=== PATIENT | female | born 1985 | race Caucasian/White ===

== ENCOUNTER 2022-03-07 09:15 | Outpatient (RCR) | payer MEDICAID, SELFPAY ==
[2022-02-21 09:07] VITALS: BP 108/55; PULSE 110; RESP 20; TEMP 36.4; BMI 22.0
--- NOTE | 2022-02-21 13:57 | PCM.WC.HP ---
History of Present Illness Date of Service: 02/21/22 Chief Complaint: Nonhealing sacral wound History of Wound: Rhiannon is a 36-year-old young lady who presents to the wound center due to a 1 month history of nonhealing sacral wound. History of paraplegia following an accident at age 3. Ulcer was said to have started about a month ago and mother and caregiver believe it was as a result of a new wheelchair and gel cushion. They have been managing this at home with an [id number] ointment which was applied 2-3 times a day with only minimal improvement/change. Close proximity to anal opening. Prior history of sacral wound for which she had wound flap/closure and this was done at [place]. Her mother states that she is otherwise stable, no chills, fever or feeling of unwell. Typically has a bowel movement every couple of days. [facility] Medical History (Updated 02/21/22 @ 19:[address] Josias Gomez MD) Paraplegia Sacral decubitus ulcer, stage III Home Medications acetaminophen 325 mg tablet (Tylenol) 650 mg PO Q4H PRN Pain 02/21/22 [History Last Taken Unknown] cranberry DAILY 02/21/22 [History Last Taken Unknown] loperamide 2 mg capsule 2 mg PO Q6H PRN Diarrhea 02/21/22 [History Last Taken Unknown] loratadine 10 mg tablet 10 mg PO DAILY PRN Allergy Symptoms 02/21/22 [History Last Taken Unknown] omeprazole 20 mg capsule,delayed release 20 mg DAILY 02/21/22 [History Last Taken Unknown] sulfamethoxazole 800 mg-trimethoprim 160 mg tablet (Bactrim DS) 1 tab PO BID 02/21/22 [History Last Taken Unknown] Allergy/AdvReac Type Severity Reaction Status Date / Time amoxicillin AdvReac Other Verified 02/21/22 09:27 ciprofloxacin [From Cipro] AdvReac Other Verified 02/21/22 09:27 clavulanic acid AdvReac PT UNSURE Verified 02/21/22 10:06 [From Augmentin] OF REACTION erythromycin base AdvReac Other Verified 02/21/22 10:06 latanoprost AdvReac Other Verified 02/21/22 10:06 pseudoephedrine AdvReac Other Verified 02/21/22 10:06 Social History Smoking Status: Never smoker ROS Constitutional Constitutional: Denies fatigue, fever(s), frequent falls, headache(s), increased appetite, lethargy, malaise or night sweats Eyes Eyes: Denies exophthalmos, eye pain, floaters, foreign body, halo effect, irritation or itchy eyes ENT HEENT: Denies foreign body in nose, headache(s), mouth pain, mucositis, nasal congestion, nasal discharge, nasal obstruction or nasal trauma Cardiovascular Cardiovascular: Denies chest pain, chest pain at rest, chest pain with activity, claudication, clubbing, cold extremities, cyanosis or dyspnea at rest Respiratory/Chest Respiratory/Chest: Denies dry cough, dusky skin, dyspnea, dyspnea on exertion, excessive phlegm production, hemoptysis, hoarseness or nail bed cyanosis Gastrointestinal Gastrointestinal: Denies chewing difficulty, coffee ground emesis, diarrhea, dry heaves or dyspepsia Genitourinary Genitourinary: Denies flank pain, genital bruising, genital lesions or low back pain Musculoskeletal Musculoskeletal: Denies atrophy, extremity pain, muscle cramps, muscle spasms, muscle weakness, myalgias or neck pain Integumentary Integumentary: Reports skin ulcer; Denies erythema, furuncle, hirsutism, jaundice, lesions, nail changes or new lesions Neurologic Neurologic: Denies burning sensations, confusion, convulsions, disequilibrium, dizziness or focal weakness Psychiatric Psychiatric: Denies change in appetite, cognitive impairment, confusion, depression, difficulty concentrating or hallucinations Endocrine Endocrinology: Denies excessive sweating, fatigue, flushing, heat intolerance, increase in ring/shoe/hat size, palpitations, polydipsia or polyphagia Hematologic/Lymphatic Hematologic/Lymphatic: Denies easy bleeding or lymphadenopathy Allergic/Immunologic Allergic/Immunologic: Denies itchy eyes, lip swelling, tongue swelling, hives, urticaria, eczemia, wheezing or asthma Vital Signs Vital Signs Vital Signs: 02/21/22 09:07 Temperature 97.5 F L Temperature Source Temporal Pulse Rate 110 H Respiratory Rate 20 H Blood Pressure 108/55 L Blood Pressure Mean 72 Blood Pressure Source Monitor Weight Weight: 140 lb 10.354 oz Body Mass Index (BMI) 22.0 Physical Exam Const alert, oriented x3 and no apparent distress General Appearance: cooperative, comfortable and well kempt HEENT normocephalic, head/scalp atraumatic and hearing grossly normal bilaterally Eyes PERRL General Eye: normal appearance of both eyes Neck full ROM General: normal visual inspection Resp normal respiratory effort and normal air movement Skin Wounds: wounds noted Neuro oriented x3 and CN's II-XII intact bilaterally Psych mental status grossly normal, thought process normal, cooperative, affect normal and speech normal Debridement Note Debridement Note Wound debrided: Sacral Type of Debridement: Excisional debridement Anesthesia Used: 4% Lidocaine Solution Depth: Down to and including healthy tissue and in the subcutaneous layer Percentage of wound debrided: 100 Instrument Used: 5mm curette Tissue Removed: Slough and devitalized tissue Severity: Fat Layer Exposed Amount of bleeding with debridement: Mild Bleeding Controlled with: Pressure Patient tolerated procedure: Patient tolerated procedure well Post-Debridement Measurements and Additional Note: Post-Debridement Measurements/Treatment - Nurse 1 - General Ulcer Assessment Start: 02/21/22 09:03 Freq: Status: Active Protocol: DELMER Activity Type Activity Date Activity User E-sign Co-sign Detail Recorded Client Recorded Date Recorded By Document 02/21/22 09:07 [id number] 02/21/22 09:22 02/21/22 09:07 - Today's Visit Information Type of service Initial Visit Arrival Mode Wheelchair Transfer Assist (Other) x2 Patient Identification Verified (Name & Yes ) Patient Requires Transmission-Based No Precautions Height and Weight Height 5 ft 7 in Weight 140 lb 10.354 oz Weight in Pounds 140.6 lbs Body Mass Index (BMI) 22.0 BMI Classification Normal BSA - Jose 1.74 Vital Signs Temperature (97.8 F-99.1 F) 97.5 F L Temperature Source Temporal Pulse Rate (60-100) 110 H Pulse Location Monitor Respiratory Rate (12-18) 20 H Respiratory rate source Observation Blood Pressure (90/60-120/80) 108/55 L Blood Pressure Mean 72 Source Monitor Pain Scale: 0-10 Numeric Is Patient Pain Free? Yes Communication Assessment Preferred language Welsh Able to Read Yes Able to Write Yes Right Hearing Abillity Normal Left Hearing Abillity Normal Visual Assistive Devices Glasses Teaching Assessment Preferences Verbal,Written, Demonstration Barriers to Learning None Readiness To Learn Good Willingness to Engage in Self Management Med Activies Readiness to Engage in Self Management Med Activities Anxiety Level Calm Cooperation Cooperative Perception Coherent Interest in Health Problem Asks Questions Education Importance Acknowledges Need Does Patient Smoke tobacco or other No substances Smoking Status Never smoker Is Patient Diabetic No Functional Assessment Recent Decline in Ability to Perform Denies Any Declines List Device(s) with Patient Culture/Faith/Door To Door Fundraising Collector Cultural/Faith Needs that may affect No Treatment Plan Would you allow our hospital door paneler to No meet you for the purpose of spiritual/ emotional support? Door To Door Fundraising Collector to contact place of gnosticist No Teaching: Wound Center Diagnostic Tests Ordered -Person Taught Patient Discharge Instructions -Person Taught Patient Dressing Your Wound -Person Taught Patient *Welcome to the Wound Center -Person Taught Patient WC - Nurse 1 - General Ulcer Measurement Start: 02/21/22 09:03 Freq: Status: Active Protocol: Activity Type Activity Date Activity User E-sign Co-sign Detail Recorded Client Recorded Date Recorded By Document 02/21/22 09:07 DL [id number] 02/21/22 09:22 DL 02/21/22 09:07 Wound Center Nurse 1 #1 sacral -Current Size (cm) - Length 3.3 -Current Size (cm) - Width 3.1 -Current Size (cm) - Depth 0.2 -Total Square Cm 10.23 -Photo Taken Yes -Exudate Amt Medium -Exudate Type Serosanguineous -Wound Margin Distinct, Outline Attached -Granulation Amt Large (67-100%) -Granulation Quality Red -Necrosis Amt None Present (0 %) -Structure Exposed N/A -Texture (Angy-wound Skin Appearance) Scarring -Moisture (Angy-wound Skin Appearance) Maceration -Color (Agny-wound Skin Appearance) No Abnormality -Temperature (Angy-wound Skin No Abnormality Appearance) (Pt Warm) -Tenderness on Palpation (Angy-wound No Skin Appearance) -Ulcer Cleansing Soap and Water -Foul Odor after Cleansing No -Anesthetic Used 4% Lidocaine Solution WC - Nurse 2 - General Ulcer CM Notes Start: 02/21/22 09:03 Freq: Status: Active Protocol: Activity Type Activity Date Activity User E-sign Co-sign Detail Recorded Client Recorded Date Recorded By Document 02/21/22 09:45 MW [id number] 02/21/22 09:53 MW 02/21/22 09:45 Wound Center Nurse 2 -Time 09:45 -Correct Patient Yes -Correct Side, Site, Position Yes -Correct Procedure Yes -Procedure Performed Yes -Type of Procedure Debridement -Clinical Debridement Subcutaneous -Tissue Removed Subcutaneous -Post Debridement (cm) - Length 1.4 -Post Debridement (cm) - Width 3.5 -Post Debridement (cm) - Depth 0.1 -Total Square (Post) (cm) 4.90 -Area of Debridement (cm) - Length 1.4 -Area of Debridement (cm) - Width 3.5 -Total Square (Area) (cm) 4.90 -Tunneling No -Undermining/Tunneling No -Circular Undermining No -Wound/Ulcer Outcome Not Healed -Ulcer Cleansing Rinsed/ Irrigated with Saline -Foul Odor after Cleansing No -Bioengineered Tissue No -Bleeding Controlled with Pressure -Treatment Response Procedure Tolerated Well -Offloading No -Debridement - Subq, 1st 20sq cm Yes Pain Scale: 0-10 Numeric Is Patient Pain Free? Yes - Nurse 3 - General Ulcer D/C NN Start: 02/21/22 09:03 Freq: Status: Active Protocol: Activity Type Activity Date Activity User E-sign Co-sign Detail Recorded Client Recorded Date Recorded By Document 02/21/22 10:08 CT [id number] 02/21/22 10:09 CT 02/21/22 10:08 Wound Care Nurse 3 #1 sacral -Ulcer Cleansing Rinsed/ Irrigated with Saline -Primary Dressing Applied Aquacel AG 4x4, Mepilex Border -Aquacel AG 4x4 1 -Mepilex Border 3 Pain Scale: 0-10 Numeric Is Patient Pain Free? Yes WC - Visit Discharge Discharge Condition Stable Ambulatory Status Wheelchair Transportation Private Auto Medication Reconcilliation completed & No provided to patient/care provider Clinical Summary of Care Provided Yes Charges/Coding Visit Charges Office Visits / Consults: 07760 OV L3 New Procedures Integumentary 111xxx-113xx: 00105 Cassandra subq tissue 20 sq cm/< Assessment/Plan Assessment/Plan (1) Sacral decubitus ulcer, stage III: CODE(S): L89.153 - Pressure ulcer of sacral region, stage 3 (2) Paraplegia: CODE(S): G82.20 - Paraplegia, unspecified PLAN: Plan Presents to the wound center due to nonhealing sacral ulcer. Has been present for about a month. Caregiver and mother have been applying an ointment 2-3 times daily. Dressing changes have been difficult due to location. Debridement done as documented above, procedure was well-tolerated. Due to proximity to anal opening, Aquacel Ag recommended. Change twice daily or more if needed depending on soilage. Family advised that if this does not improve/if there is increased risk of contamination, a divergent colostomy or flap closure may be needed again. Increase protein intake. Offloading. Vitamin C, D and zinc also recommended. The questions were answered and they were advised to call with any further questions or concerns. Follow-up in a week or sooner if needed. This note was generated with [employer] dictation software. It may contain incorrect words, spelling, and punctuation that were not noted in checking the note before signing.
[2022-02-28 09:30] VITALS: BP 115/70; PULSE 116; RESP 18; TEMP 36.5; BMI 22.0
--- NOTE | 2022-02-28 12:57 | PCM.WC.PN ---
History of Present Illness Date of Service: 02/28/22 Chief Complaint: Nonhealing sacral wound History of Wound: Rhiannon is a 36-year-old young lady who presents to the wound center due to a 1 month history of nonhealing sacral wound. History of paraplegia following an accident at age 3. Ulcer was said to have started about a month ago and mother and caregiver believe it was as a result of a new wheelchair and gel cushion. They have been managing this at home with an [id number]-[id number] ointment which was applied 2-3 times a day with only minimal improvement/change. Close proximity to anal opening. Prior history of sacral wound for which she had wound flap/closure and this was done at [place]. Her mother states that she is otherwise stable, no chills, fever or feeling of unwell. Typically has a bowel movement every couple of days. Progress of Wound: Improving. No new concerns at this time. Objective Data Objective Data Vital Signs: Vital Signs Temp Pulse Resp BP O2 Del Method 97.7 F L 116 H 18 115/70 Room Air 02/28/22 09:30 02/28/22 09:30 02/28/22 09:30 02/28/22 09:30 02/28/22 09:30 Oxygen Delivery Method Room Air Weight: 140 lb 10.354 oz Body Mass Index (BMI) 22.0 Charges/Coding Procedures Integumentary 111xxx-113xx: 58821 Cassandra subq tissue 20 sq cm/< Physical Exam Const alert, oriented x3 and no apparent distress General Appearance: cooperative, comfortable and well kempt HEENT normocephalic, head/scalp atraumatic and hearing grossly normal bilaterally Eyes PERRL General Eye: normal appearance of both eyes Neck full ROM General: normal visual inspection Resp normal respiratory effort and normal air movement Skin Wounds: wounds noted Neuro oriented x3 and CN's II-XII intact bilaterally Psych mental status grossly normal, thought process normal, cooperative, affect normal and speech normal Debridement Note Debridement Note Wound debrided: Sacral Type of Debridement: Excisional debridement Anesthesia Used: 4% Lidocaine Solution Depth: Down to and including healthy tissue and in the subcutaneous layer Percentage of wound debrided: 100 Instrument Used: 5mm curette Tissue Removed: Slough and devitalized tissue Severity: Fat Layer Exposed Amount of bleeding with debridement: Mild Bleeding Controlled with: Pressure Patient tolerated procedure: Patient tolerated procedure well Post-Debridement Measurements and Additional Note: Post-Debridement Measurements/Treatment WC - Nurse 1 - General Ulcer Assessment Start: 02/21/22 09:03 Freq: Status: Active Protocol: DELMER Activity Type Activity Date Activity User E-sign Co-sign Detail Recorded Client Recorded Date Recorded By Document 02/21/22 09:07 DL [id number] 02/21/22 09:22 DL Document 02/28/22 09:30 OR [id number] 02/28/22 09:39 OR 02/21/22 02/28/22 09:07 09:30 - Today's Visit Information Type of service Initial Visit Follow-up Visit (Physician/LAND ACQUISITION MANAGER ) Arrival Mode Wheelchair Wheelchair Transfer Assist (Other) x2 Accompanied by aid Patient Identification Verified (Name & Yes Yes ) Patient Requires Transmission-Based No Precautions Safety Precautions Fall Prevention Height and Weight Height 5 ft 7 in Weight 140 lb 10.354 oz Weight in Pounds 140.6 lbs Body Mass Index (BMI) 22.0 22.0 BMI Classification Normal Normal BSA - Jose 1.74 Vital Signs Temperature (97.8 F-99.1 F) 97.5 F L 97.7 F L Temperature Source Temporal Temporal Pulse Rate (60-100) 110 H 116 H Pulse Location Monitor Monitor Respiratory Rate (12-18) 20 H 18 Respiratory rate source Observation Observation Oxygen Delivery Method Room Air Blood Pressure (90/60-120/80) 108/55 L 115/70 Blood Pressure Mean (mm Hg) 72 85 Source Monitor Monitor Position Sitting Blood Pressure Location Right Arm History Since Last Visit- (Skip if this is Patient's initial visit) Left Footwear Regular Shoe Right Footwear Regular Shoe Pain Scale: 0-10 Numeric Is Patient Pain Free? Yes Yes Communication Assessment Preferred language Mosotho Able to Read Yes Able to Write Yes Right Hearing Abillity Normal Left Hearing Abillity Normal Visual Assistive Devices Glasses Teaching Assessment Preferences Verbal,Written, Demonstration Barriers to Learning None Readiness To Learn Good Willingness to Engage in Self Management Med Activies Readiness to Engage in Self Management Med Activities Anxiety Level Calm Cooperation Cooperative Perception Coherent Interest in Health Problem Asks Questions Education Importance Acknowledges Need Does Patient Smoke tobacco or other No substances Smoking Status Never smoker Is Patient Diabetic No Functional Assessment Recent Decline in Ability to Perform Denies Any Declines List Device(s) with Patient Culture/Yarsanism/Clerical Support Cultural/Yarsanism Needs that may affect No Treatment Plan Would you allow our hospital automobile accessories installer to No meet you for the purpose of spiritual/ emotional support? Clerical Support to contact place of congregation No Teaching: Wound Center Diagnostic Tests Ordered -Person Taught Patient Discharge Instructions -Person Taught Patient Dressing Your Wound -Person Taught Patient *Welcome to the Wound Center -Person Taught Patient WC - Nurse 1 - General Ulcer Measurement Start: 02/21/22 09:03 Freq: Status: Active Protocol: Activity Type Activity Date Activity User E-sign Co-sign Detail Recorded Client Recorded Date Recorded By Document 02/21/22 09:07 DL [id number] 02/21/22 09:22 DL Document 02/28/22 09:30 OR [id number] 02/28/22 09:39 MT 02/21/22 02/28/22 09:07 09:30 Wound Center Nurse 1 #1 sacral -Current Size (cm) - Length 3.3 1.1 -Current Size (cm) - Width 3.1 3.0 -Current Size (cm) - Depth 0.2 0.1 -Total Square Cm 10.23 3.30 -Photo Taken Yes -Exudate Amt Medium Small -Exudate Type Serosanguineous Serosanguineous -Wound Margin Distinct, Flat & Intact Outline Attached -Granulation Amt Large (67-100%) Large (67-100%) -Granulation Quality Red Pale,[place],Red -Necrosis Amt None Present (0 None Present (0 %) %) -Structure Exposed N/A -Texture (Angy-wound Skin Appearance) Scarring Assessed -Moisture (Angy-wound Skin Appearance) Maceration Assessed -Color (Angy-wound Skin Appearance) No Abnormality Assessed -Temperature (Angy-wound Skin No Abnormality No Abnormality Appearance) (Pt Warm) (Pt Warm) -Tenderness on Palpation (Angy-wound No No Skin Appearance) -Ulcer Cleansing Soap and Water Rinsed/ Irrigated with Saline -Foul Odor after Cleansing No No -Anesthetic Used 4% Lidocaine 4% Lidocaine Solution Solution Lower Limb Edema Present NA WC - Nurse 2 - General Ulcer CM Notes Start: 02/21/22 09:03 Freq: Status: Active Protocol: Activity Type Activity Date Activity User E-sign Co-sign Detail Recorded Client Recorded Date Recorded By Document 02/21/22 09:45 MW [id number] 02/21/22 09:53 MW Document 02/28/22 09:47 MW [id number] 02/28/22 09:49 MW 02/21/22 02/28/22 09:45 09:47 Wound Center Nurse 2 #1 sacral -Time 09:45 09:47 -Correct Patient Yes Yes -Correct Side, Site, Position Yes Yes -Correct Procedure Yes Yes -Procedure Performed Yes Yes -Type of Procedure Debridement Debridement -Clinical Debridement Subcutaneous Subcutaneous -Tissue Removed Subcutaneous Subcutaneous -Post Debridement (cm) - Length 1.4 1.2 -Post Debridement (cm) - Width 3.5 3.0 -Post Debridement (cm) - Depth 0.1 0.1 -Total Square (Post) (cm) 4.90 3.60 -Area of Debridement (cm) - Length 1.4 1.2 -Area of Debridement (cm) - Width 3.5 3.0 -Total Square (Area) (cm) 4.90 3.60 -Tunneling No No -Undermining/Tunneling No No -Circular Undermining No No -Wound/Ulcer Outcome Not Healed Not Healed -Ulcer Cleansing Rinsed/ Rinsed/ Irrigated with Irrigated with Saline Saline -Foul Odor after Cleansing No No -Bioengineered Tissue No No -Bleeding Controlled with Pressure Pressure -Treatment Response Procedure Procedure Tolerated Well Tolerated Well -Offloading No No -Debridement - Subq, 1st 20sq cm Yes Yes Pain Scale: 0-10 Numeric Is Patient Pain Free? Yes Yes - Nurse 3 - General Ulcer D/C NN Start: 02/21/22 09:03 Freq: Status: Active Protocol: Activity Type Activity Date Activity User E-sign Co-sign Detail Recorded Client Recorded Date Recorded By Document 02/21/22 10:08 OR [id number] 02/21/22 10:09 OR Document 02/28/22 10:01 [facility] [id number] 02/28/22 10:01 [facility] 02/21/22 02/28/22 10:08 10:01 Wound Care Nurse 3 #1 sacral -Ulcer Cleansing Rinsed/ Rinsed/ Irrigated with Irrigated with Saline Saline -Foul Odor after Cleansing No -Primary Dressing Applied Aquacel AG 4x4, Aquacel AG 4x4, Mepilex Border Mepilex Border -Aquacel AG 4x4 1 1 -Mepilex Border 3 1 Treatment Response Procedure Tolerated Well Pain Scale: 0-10 Numeric Is Patient Pain Free? Yes Yes WC - Visit Discharge Discharge Condition Stable Stable Ambulatory Status Wheelchair Wheelchair Transportation Private Auto Private Auto Accompanied by caregiver Medication Reconcilliation completed & No provided to patient/care provider Clinical Summary of Care Provided Yes Assessment/Plan Assessment/Plan (1) Sacral decubitus ulcer, stage III: CODE(S): L89.153 - Pressure ulcer of sacral region, stage 3 (2) Paraplegia: CODE(S): G82.20 - Paraplegia, unspecified PLAN: Plan Debridement done as documented above, procedure was well-tolerated. Improving. Continue Aquacel Ag recommended. Change twice daily or more if needed depending on soilage. Continue Increased protein intake and Offloading. Vitamin C, D and zinc also recommended. Their questions were answered and they were advised to call with any further questions or concerns. Follow-up in a week or sooner if needed. This note was generated with [employer] dictation software. It may contain incorrect words, spelling, and punctuation that were not noted in checking the note before signing.
[2022-03-07 09:07] VITALS: BP 97/65; PULSE 116; RESP 16; TEMP 35.8; BMI 22.0
--- NOTE | 2022-03-07 13:32 | PCM.WC.PN ---
History of Present Illness Date of Service: 03/07/22 Chief Complaint: Nonhealing sacral wound History of Wound: Rhiannon is a 36-year-old young lady who presents to the wound center due to a 1 month history of nonhealing sacral wound. History of paraplegia following an accident at age 3. Ulcer was said to have started about a month ago and mother and caregiver believe it was as a result of a new wheelchair and gel cushion. They have been managing this at home with an [id number] ointment which was applied 2-3 times a day with only minimal improvement/change. Close proximity to anal opening. Prior history of sacral wound for which she had wound flap/closure and this was done at [place]. Her mother states that she is otherwise stable, no chills, fever or feeling of unwell. Typically has a bowel movement every couple of days. Progress of Wound: Improving. No new concerns at this time. Objective Data Objective Data Vital Signs: Vital Signs Temp Pulse Resp BP O2 Del Method 96.4 F L 116 H 16 97/65 Room Air 03/07/22 09:07 03/07/22 09:07 03/07/22 09:07 03/07/22 09:07 03/07/22 09:07 Oxygen Delivery Method Room Air Weight: 140 lb 10.354 oz Body Mass Index (BMI) 22.0 Charges/Coding Procedures Integumentary 111xxx-113xx: 60406 Cassandra subq tissue 20 sq cm/< Physical Exam Const alert, oriented x3 and no apparent distress General Appearance: cooperative, comfortable and well kempt HEENT normocephalic, head/scalp atraumatic and hearing grossly normal bilaterally Eyes PERRL General Eye: normal appearance of both eyes Neck full ROM General: normal visual inspection Resp normal respiratory effort and normal air movement Skin Wounds: wounds noted Neuro oriented x3 and CN's II-XII intact bilaterally Psych mental status grossly normal, thought process normal, cooperative, affect normal and speech normal Debridement Note Debridement Note Wound debrided: Sacral Type of Debridement: Excisional debridement Anesthesia Used: 4% Lidocaine Solution Depth: Down to and including healthy tissue and in the subcutaneous layer Percentage of wound debrided: 100 Instrument Used: 3mm curette Tissue Removed: Slough and devitalized tissue Severity: Fat Layer Exposed Amount of bleeding with debridement: Mild Bleeding Controlled with: Pressure Patient tolerated procedure: Patient tolerated procedure well Post-Debridement Measurements and Additional Note: Post-Debridement Measurements/Treatment WC - Nurse 1 - General Ulcer Assessment Start: 02/21/22 09:03 Freq: Status: Active Protocol: DELMER Activity Type Activity Date Activity User E-sign Co-sign Detail Recorded Client Recorded Date Recorded By Document 02/21/22 09:07 DL [id number] 02/21/22 09:22 DL Document 02/28/22 09:30 MT [id number] 02/28/22 09:39 MT Document 03/07/22 09:07 BMF [id number] 03/07/22 09:16 BMF 02/21/22 02/28/22 03/07/22 09:07 09:30 09:07 - Today's Visit Information Type of service Initial Visit Follow-up Visit Follow-up Visit (Physician/[employer] [facility] (Physician/[employer] MILLER ) ) Arrival Mode Wheelchair Wheelchair Wheelchair Transfer Assist (Other) x2 Accompanied by aid caregiver Patient Identification Verified (Name & Yes Yes Yes ) Patient Requires Transmission-Based No No Precautions Safety Precautions Fall Prevention Height and Weight Height 5 ft 7 in Weight 140 lb 10.354 oz Weight in Pounds 140.6 lbs Body Mass Index (BMI) 22.0 22.0 22.0 BMI Classification Normal Normal Normal BSA - Jose 1.74 Vital Signs Temperature (97.8 F-99.1 F) 97.5 F L 97.7 F L 96.4 F L Temperature Source Temporal Temporal Temporal Pulse Rate (60-100) 110 H 116 H 116 H Pulse Location Monitor Monitor Monitor Respiratory Rate (12-18) 20 H 18 16 Respiratory rate source Observation Observation Observation Oxygen Delivery Method Room Air Room Air Blood Pressure (90/60-120/80) 108/55 L 115/70 97/65 Blood Pressure Mean (mm Hg) 72 85 75 Source Monitor Monitor Monitor Position Sitting Sitting Blood Pressure Location Right Arm Left Arm History Since Last Visit- (Skip if this is Patient's initial visit) Have you changed medications since your No last visit? Any new allergies or adverse reactions No Had a fall/change in ADL's that may No increase risk of falls Signs or symptoms of abuse and/or No neglect since last visit Have you been in the hospital since your No last visit? Has dressing in place as prescribed Yes Has compression in place as prescribed N/A Has offloadiing in place as prescribed N/A Experienced any changes in pain level or No management Left Footwear Regular Shoe Slipper Right Footwear Regular Shoe Slipper Pain Scale: 0-10 Numeric Is Patient Pain Free? Yes Yes Yes Communication Assessment Preferred language Guinean Able to Read Yes Able to Write Yes Right Hearing Abillity Normal Left Hearing Abillity Normal Visual Assistive Devices Glasses Teaching Assessment Preferences Verbal,Written, Demonstration Barriers to Learning None Readiness To Learn Good Willingness to Engage in Self Management Med Activies Readiness to Engage in Self Management Med Activities Anxiety Level Calm Cooperation Cooperative Perception Coherent Interest in Health Problem Asks Questions Education Importance Acknowledges Need Does Patient Smoke tobacco or other No substances Smoking Status Never smoker Is Patient Diabetic No Functional Assessment Recent Decline in Ability to Perform Denies Any Declines List Device(s) with Patient Culture/Scientology/Range Examiner Cultural/Scientology Needs that may affect No Treatment Plan Would you allow our hospital graphics programmer to No meet you for the purpose of spiritual/ emotional support? Range Examiner to contact place of uatsdin No Teaching: Wound Center Diagnostic Tests Ordered -Person Taught Patient Discharge Instructions -Person Taught Patient Dressing Your Wound -Person Taught Patient *Welcome to the Wound Center -Person Taught Patient WC - Nurse 1 - General Ulcer Measurement Start: 02/21/22 09:03 Freq: Status: Active Protocol: Activity Type Activity Date Activity User E-sign Co-sign Detail Recorded Client Recorded Date Recorded By Document 02/21/22 09:07 [id number] 02/21/22 09:22 DL Document 02/28/22 09:30 SD [id number] 02/28/22 09:39 SD Document 03/07/22 09:07 [facility] [id number] 03/07/22 09:16 [facility] 02/21/22 02/28/22 03/07/22 09:07 09:30 09:07 Wound Center Nurse 1 #1 sacral -Combined with other wound No -Current Size (cm) - Length 3.3 1.1 1.4 -Current Size (cm) - Width 3.1 3.0 2 -Current Size (cm) - Depth 0.2 0.1 0.1 -Total Square Cm 03.03 3.30 2.8 -Date of Last Picture (Recall this 03/07/22 field) -Photo Taken Yes Yes -Epithelialization None Present -Tunneling No -Undermining/Tunneling No -Circular Undermining No -Exudate Amt Medium Small Small -Exudate Type Serosanguineous Serosanguineous Serosanguineous -Wound Margin Distinct, Flat & Intact Distinct, Outline Outline Attached Attached -Granulation Amt Large (67-100%) Large (67-100%) Large (67-100%) -Granulation Quality Red Pale,[place],Red Red -Slough/Fibrin No -Necrosis Amt None Present (0 None Present (0 None Present (0 %) %) %) -Structure Exposed N/A -Texture (Angy-wound Skin Appearance) Scarring Assessed Assessed -Moisture (Angy-wound Skin Appearance) Maceration Assessed Assessed -Color (Angy-wound Skin Appearance) No Abnormality Assessed Assessed -Temperature (Angy-wound Skin No Abnormality No Abnormality No Abnormality Appearance) (Pt Warm) (Pt Warm) (Pt Warm) -Tenderness on Palpation (Angy-wound No No No Skin Appearance) -Ulcer Cleansing Soap and Water Rinsed/ Rinsed/ Irrigated with Irrigated with Saline Saline -Foul Odor after Cleansing No No No -Anesthetic Used 4% Lidocaine 4% Lidocaine 4% Lidocaine Solution Solution Solution Lower Limb Edema Present NA WC - Nurse 2 - General Ulcer CM Notes Start: 02/21/22 09:03 Freq: Status: Active Protocol: Activity Type Activity Date Activity User E-sign Co-sign Detail Recorded Client Recorded Date Recorded By Document 02/21/22 09:45 MW [id number] 02/21/22 09:53 MW Document 02/28/22 09:47 MW [id number] 02/28/22 09:49 MW Document 03/07/22 09:36 MW [id number] 03/07/22 09:40 MW 02/21/22 02/28/22 03/07/22 09:45 09:47 09:36 Wound Center Nurse 2 #1 sacral -Time 09:45 09:47 09:36 -Correct Patient Yes Yes Yes -Correct Side, Site, Position Yes Yes Yes -Correct Procedure Yes Yes Yes -Procedure Performed Yes Yes Yes -Type of Procedure Debridement Debridement Debridement -Clinical Debridement Subcutaneous Subcutaneous Subcutaneous -Tissue Removed Subcutaneous Subcutaneous Subcutaneous -Post Debridement (cm) - Length 1.4 1.2 0.9 -Post Debridement (cm) - Width 3.5 3.0 2.3 -Post Debridement (cm) - Depth 0.1 0.1 0.1 -Total Square (Post) (cm) 4.90 3.60 2.07 -Area of Debridement (cm) - Length 1.4 1.2 0.9 -Area of Debridement (cm) - Width 3.5 3.0 2.3 -Total Square (Area) (cm) 4.90 3.60 2.07 -Tunneling No No No -Undermining/Tunneling No No No -Circular Undermining No No No -Wound/Ulcer Outcome Not Healed Not Healed Not Healed -Ulcer Cleansing Rinsed/ Rinsed/ Rinsed/ Irrigated with Irrigated with Irrigated with Saline Saline Saline -Foul Odor after Cleansing No No No -Bioengineered Tissue No No No -Bleeding Controlled with Pressure Pressure Pressure -Treatment Response Procedure Procedure Procedure Tolerated Well Tolerated Well Tolerated Well -Offloading No No No -Debridement - Subq, 1st 20sq cm Yes Yes Yes Pain Scale: 0-10 Numeric Is Patient Pain Free? Yes Yes Yes WC - Nurse 3 - General Ulcer D/C NN Start: 02/21/22 09:03 Freq: Status: Active Protocol: Activity Type Activity Date Activity User E-sign Co-sign Detail Recorded Client Recorded Date Recorded By Document 02/21/22 10:08 SD [id number] 02/21/22 10:09 SD Document 02/28/22 10:01 [facility] [id number] 02/28/22 10:01 [facility] Document 03/07/22 09:56 ML [id number] 03/07/22 09:56 ML 02/21/22 02/28/22 03/07/22 10:08 10:01 09:56 Wound Care Nurse 3 #1 sacral -Ulcer Cleansing Rinsed/ Rinsed/ Rinsed/ Irrigated with Irrigated with Irrigated with Saline Saline Saline -Foul Odor after Cleansing No No -Primary Dressing Applied Aquacel AG 4x4, Aquacel AG 4x4, Aquacel AG 4x4, Mepilex Border Mepilex Border Mepilex Border -Aquacel AG 4x4 1 1 1 -Mepilex Border 3 1 1 Treatment Response Procedure Tolerated Well Pain Scale: 0-10 Numeric Is Patient Pain Free? Yes Yes Yes WC - Visit Discharge Discharge Condition Stable Stable Ambulatory Status Wheelchair Wheelchair Transportation Private Auto Private Auto Accompanied by caregiver Medication Reconcilliation completed & No provided to patient/care provider Clinical Summary of Care Provided Yes Assessment/Plan Assessment/Plan (1) Sacral decubitus ulcer, stage III: CODE(S): L89.153 - Pressure ulcer of sacral region, stage 3 (2) Paraplegia: CODE(S): G82.20 - Paraplegia, unspecified PLAN: Plan Debridement done as documented above, procedure was well-tolerated. Improving. Continue Aquacel Ag recommended. Change twice daily or more if needed depending on soilage. Continue Increased protein intake and Offloading. Vitamin C, D and zinc also recommended. Their questions were answered and they were advised to call with any further questions or concerns. Follow-up in a week or sooner if needed. This note was generated with [employer] Access dictation software. It may contain incorrect words, spelling, and punctuation that were not noted in checking the note before signing.
== END 2022-03-11 23:59 | disposition home or self-care (01) ==
LOC: WC 09:15
PROVIDERS: PCP Internal Medicine; Visit Provider Internal Medicine
DX: L89.153 Pressure ulcer of sacral region, stage 3 (principal); G82.20 Paraplegia, unspecified
CPT/HCPCS: 11042; 99203; G0463

== ENCOUNTER 2022-03-28 09:45 | Outpatient (RCR) | payer MEDICAID, SELFPAY ==
[2022-03-12 00:42] VITALS: BP 97/65; PULSE 116; RESP 16; TEMP 35.8; BMI 22.0
[2022-03-14 08:33] VITALS: BP 99/66; PULSE 100; RESP 20; TEMP 36.6; BMI 22.0
--- NOTE | 2022-03-14 12:19 | PN.PCM_ITS ---
History of Present Illness Date of Service: 03/14/22 Chief Complaint: Nonhealing sacral wound History of Wound: Rhiannon is a 36-year-old young lady who presents to the wound center due to a 1 month history of nonhealing sacral wound. History of paraplegia following an accident at age 3. Ulcer was said to have started about a month ago and mother and caregiver believe it was as a result of a new wheelchair and gel cushion. They have been managing this at home with an kdfj-ypb-[id number] ointment which was applied 2-3 times a day with only minimal improvement/change. Close proximity to anal opening. Prior history of sacral wound for which she had wound flap/closure and this was done at [place]. Her mother states that she is otherwise stable, no chills, fever or feeling of unwell. Typically has a bowel movement every couple of days. Progress of Wound: Increased bowel movement over the last week and difficulty with keeping dressing in place. Some worsening noted. Objective Data Objective Data Vital Signs: Vital Signs Temp Pulse Resp BP 97.9 F 100 20 H 99/66 03/14/22 08:33 03/14/22 08:33 03/14/22 08:33 03/14/22 08:33 Weight: 140 lb 10.354 oz Body Mass Index (BMI) 22.0 Charges/Coding Procedures Integumentary 111xxx-113xx: 29824 Cassandra subq tissue 20 sq cm/< Physical Exam Const alert, oriented x3 and no apparent distress General Appearance: cooperative, comfortable and well kempt HEENT normocephalic, head/scalp atraumatic and hearing grossly normal bilaterally Eyes PERRL General Eye: normal appearance of both eyes Neck full ROM General: normal visual inspection Resp normal respiratory effort and normal air movement Skin Wounds: wounds noted Neuro oriented x3 and CN's II-XII intact bilaterally Psych mental status grossly normal, thought process normal, cooperative, affect normal and speech normal Debridement Note Debridement Note Wound debrided: Sacral Type of Debridement: Excisional debridement Anesthesia Used: 4% Lidocaine Solution Depth: Down to and including healthy tissue and in the subcutaneous layer Percentage of wound debrided: 100 Instrument Used: 3mm curette Tissue Removed: Slough and devitalized tissue Severity: Fat Layer Exposed Amount of bleeding with debridement: Mild Bleeding Controlled with: Pressure Patient tolerated procedure: Patient tolerated procedure well Post-Debridement Measurements and Additional Note: Post-Debridement Measurements/Treatment JUAN - Nurse 1 - General Ulcer Assessment Start: 03/14/22 08:33 Freq: Status: Active Protocol: DELMER Activity Type Activity Date Activity User E-sign Co-sign Detail Recorded Client Recorded Date Recorded By Document 03/14/22 08:33 DL [id number] 03/14/22 08:40 DL 03/14/22 08:33 WC - Today's Visit Information Type of service Follow-up Visit (Physician/E BUSINESS CONSULTANT ) Arrival Mode Wheelchair Transfer Assist (Other) x2 Patient Identification Verified (Name & Yes ) Patient Requires Transmission-Based No Precautions Height and Weight Body Mass Index (BMI) 22.0 BMI Classification Normal Vital Signs Temperature (97.8 F-99.1 F) 97.9 F Temperature Source Temporal Pulse Rate (60-100) 100 Pulse Location Monitor Respiratory Rate (12-18) 20 H Respiratory rate source Observation Blood Pressure (90/60-120/80) 99/66 Blood Pressure Mean (mm Hg) 77 Source Monitor History Since Last Visit- (Skip if this is Patient's initial visit) Have you changed medications since your No last visit? Any new allergies or adverse reactions No Had a fall/change in ADL's that may No increase risk of falls Signs or symptoms of abuse and/or No neglect since last visit Have you been in the hospital since your No last visit? Has dressing in place as prescribed Yes Has compression in place as prescribed N/A Has offloadiing in place as prescribed Yes Experienced any changes in pain level or No management Pain Scale: 0-10 Numeric Is Patient Pain Free? Yes JUAN - Nurse 1 - General Ulcer Measurement Start: 03/14/22 08:33 Freq: Status: Active Protocol: Activity Type Activity Date Activity User E-sign Co-sign Detail Recorded Client Recorded Date Recorded By Document 03/14/22 08:33 DL [id number] 03/14/22 08:40 DL 03/14/22 08:33 Wound Center Nurse 1 #1 sacral -Current Size (cm) - Length 1.4 -Current Size (cm) - Width 2.1 -Current Size (cm) - Depth 0.2 -Total Square Cm 2.94 -Photo Taken No -Exudate Amt Medium -Exudate Type Serosanguineous -Wound Margin Distinct, Outline Attached -Granulation Amt Large (67-100%) -Granulation Quality Red -Necrosis Amt None Present (0 %) -Structure Exposed N/A -Texture (Agny-wound Skin Appearance) Scarring -Moisture (Angy-wound Skin Appearance) No Abnormality -Color (Angy-wound Skin Appearance) No Abnormality -Temperature (Angy-wound Skin No Abnormality Appearance) (Pt Warm) -Ulcer Cleansing Soap and Water -Foul Odor after Cleansing No -Anesthetic Used 5% Lidocaine Gel WC - Nurse 2 - General Ulcer CM Notes Start: 03/14/22 08:33 Freq: Status: Active Protocol: Activity Type Activity Date Activity User E-sign Co-sign Detail Recorded Client Recorded Date Recorded By Document 03/14/22 09:06 [id number] 03/14/22 09:09 03/14/22 09:06 Wound Center Nurse 2 -Time 09:06 -Correct Patient Yes -Correct Side, Site, Position Yes -Correct Procedure Yes -Procedure Performed Yes -Type of Procedure Debridement -Clinical Debridement Subcutaneous -Tissue Removed Subcutaneous -Post Debridement (cm) - Length 1.0 -Post Debridement (cm) - Width 2.5 -Post Debridement (cm) - Depth 0.1 -Total Square (Post) (cm) 2.50 -Area of Debridement (cm) - Length 1.0 -Area of Debridement (cm) - Width 2.5 -Total Square (Area) (cm) 2.50 -Tunneling No -Undermining/Tunneling No -Circular Undermining No -Wound/Ulcer Outcome Not Healed -Ulcer Cleansing Wound Cleanser -Foul Odor after Cleansing No -Bioengineered Tissue No -Bleeding Controlled with Pressure -Treatment Response Procedure Tolerated Well -Offloading No -Debridement - Subq, 1st 20sq cm Yes Pain Scale: 0-10 Numeric Is Patient Pain Free? Yes - Nurse 3 - General Ulcer D/C NN Start: 03/14/22 08:33 Freq: Status: Active Protocol: Activity Type Activity Date Activity User E-sign Co-sign Detail Recorded Client Recorded Date Recorded By Document 03/14/22 09:20 [facility] [id number] 03/14/22 09:20 [facility] 03/14/22 09:20 Wound Care Nurse 3 #1 sacral -Ulcer Cleansing Rinsed/ Irrigated with Saline -Foul Odor after Cleansing No -Primary Dressing Applied Mepilex Border, Promogran -Other Dressing DRSG PER DL APPLICATIONS SYSTEMS ANALYST -Mepilex Border 1 -Promogran 1 Treatment Response Procedure Tolerated Well Pain Scale: 0-10 Numeric Is Patient Pain Free? Yes WC - Visit Discharge Discharge Condition Stable Transportation Private Auto Accompanied by CAREGIVER Assessment/Plan Assessment/Plan (1) Sacral decubitus ulcer, stage III: CODE(S): L89.153 - Pressure ulcer of sacral region, stage 3 (2) Paraplegia: CODE(S): G82.20 - Paraplegia, unspecified PLAN: Plan Debridement done as documented above, procedure was well-tolerated. Mild worsening. Some difficulties as discussed above. Switch to Promogran. Change twice daily or more if needed depending on soilage. Continue Increased protein intake and Offloading. Vitamin C, D and zinc also recommended. Their questions were answered and they were advised to call with any further questions or concerns. Follow-up in a week or sooner if needed. This note was generated with [employer] dictation software. It may contain incorrect words, spelling, and punctuation that were not noted in checking the note before signing.
[2022-03-21 09:04] VITALS: BP 146/98; PULSE 94; RESP 16; TEMP 36.1; BMI 22.0
--- NOTE | 2022-03-21 10:47 | PCM.WC.PN ---
History of Present Illness Date of Service: 03/21/22 Chief Complaint: Nonhealing sacral wound History of Wound: Rhiannon is a 36-year-old young lady who presents to the wound center due to a 1 month history of nonhealing sacral wound. History of paraplegia following an accident at age 3. Ulcer was said to have started about a month ago and mother and caregiver believe it was as a result of a new wheelchair and gel cushion. They have been managing this at home with an [id number]-[id number] ointment which was applied 2-3 times a day with only minimal improvement/change. Close proximity to anal opening. Prior history of sacral wound for which she had wound flap/closure and this was done at [place]. Her mother states that she is otherwise stable, no chills, fever or feeling of unwell. Typically has a bowel movement every couple of days. Progress of Wound: Was switched to Promogran last week and her caregiver states that there was some improvement however they have run out and are yet to receive supplies from insurance. She has also had increased bowel movement due to bowel prep for colonoscopy. Periwound irritation. Objective Data Objective Data Vital Signs: Vital Signs Temp Pulse Resp BP O2 Del Method 96.9 F L 94 16 146/98 H Room Air 03/21/22 09:04 03/21/22 09:04 03/21/22 09:04 03/21/22 09:04 03/21/22 09:04 Oxygen Delivery Method Room Air Weight: 140 lb 10.354 oz Body Mass Index (BMI) 22.0 Charges/Coding Procedures Integumentary 111xxx-113xx: 81899 Cassandra subq tissue 20 sq cm/< Physical Exam Const alert, oriented x3 and no apparent distress General Appearance: cooperative, comfortable and well kempt HEENT normocephalic, head/scalp atraumatic and hearing grossly normal bilaterally Eyes PERRL General Eye: normal appearance of both eyes Neck full ROM General: normal visual inspection Resp normal respiratory effort and normal air movement Skin Wounds: wounds noted Neuro oriented x3 and CN's II-XII intact bilaterally Psych mental status grossly normal, thought process normal, cooperative, affect normal and speech normal Debridement Note Debridement Note Wound debrided: Sacral Type of Debridement: Excisional debridement Anesthesia Used: 4% Lidocaine Solution Depth: Down to and including healthy tissue and in the subcutaneous layer Percentage of wound debrided: 100 Instrument Used: 3mm curette Tissue Removed: Slough and devitalized tissue Severity: Fat Layer Exposed Amount of bleeding with debridement: Mild Bleeding Controlled with: Pressure Patient tolerated procedure: Patient tolerated procedure well Post-Debridement Measurements and Additional Note: Post-Debridement Measurements/Treatment WC - Nurse 1 - General Ulcer Assessment Start: 03/14/22 08:33 Freq: Status: Active Protocol: [email or web address].[email or web address] Activity Type Activity Date Activity User E-sign Co-sign Detail Recorded Client Recorded Date Recorded By Document 03/14/22 08:33 DL [id number] 03/14/22 08:40 DL Document 03/21/22 09:04 BM [id number] 03/21/22 09:15 BMF 03/14/22 03/21/22 08:33 09:04 WC - Today's Visit Information Type of service Follow-up Visit Follow-up Visit (Physician/BICYCLE RACER (Physician/BICYCLE RACER ) ) Arrival Mode Wheelchair Wheelchair Transfer Assistance None Transfer Assist (Other) x2 Accompanied by caregiver Patient Identification Verified (Name & Yes Yes ) Patient Requires Transmission-Based No No Precautions Height and Weight Body Mass Index (BMI) 22.0 22.0 BMI Classification Normal Normal Vital Signs Temperature (97.8 F-99.1 F) 97.9 F 96.9 F L Temperature Source Temporal Temporal Pulse Rate (60-100) 100 94 Pulse Location Monitor Monitor Respiratory Rate (12-18) 20 H 16 Respiratory rate source Observation Observation Oxygen Delivery Method Room Air Blood Pressure (90/60-120/80) 99/66 146/98 H Blood Pressure Mean (mm Hg) 77 114 Source Monitor Monitor Position Sitting Blood Pressure Location Left Arm History Since Last Visit- (Skip if this is Patient's initial visit) Have you changed medications since your No No last visit? Any new allergies or adverse reactions No No Had a fall/change in ADL's that may No No increase risk of falls Signs or symptoms of abuse and/or No No neglect since last visit Have you been in the hospital since your No No last visit? Has dressing in place as prescribed Yes Yes Has compression in place as prescribed N/A N/A Has offloadiing in place as prescribed Yes N/A Experienced any changes in pain level or No No management Other Footwear socks only Pain Scale: 0-10 Numeric Is Patient Pain Free? Yes Yes WC - Nurse 1 - General Ulcer Measurement Start: 03/14/22 08:33 Freq: Status: Active Protocol: Activity Type Activity Date Activity User E-sign Co-sign Detail Recorded Client Recorded Date Recorded By Document 03/14/22 08:33 DL [id number] 03/14/22 08:40 DL Document 03/21/22 09:04 BM [id number] 03/21/22 09:15 BM 03/14/22 03/21/22 08:33 09:04 Wound Center Nurse 1 #1 sacral -Combined with other wound No -Current Size (cm) - Length 1.4 1 -Current Size (cm) - Width 2.1 1.2 -Current Size (cm) - Depth 0.2 0.1 -Total Square Cm 2.94 1.2 -Date of Last Picture (Recall this 03/21/22 field) -Photo Taken No Yes -Epithelialization None Present -Tunneling No -Undermining/Tunneling No -Circular Undermining No -Exudate Amt Medium Medium -Exudate Type Serosanguineous Sanguineous -Wound Margin Distinct, Distinct, Outline Outline Attached Attached -Granulation Amt Large (67-100%) Large (67-100%) -Granulation Quality Red Red -Slough/Fibrin No -Necrosis Amt None Present (0 None Present (0 %) %) -Structure Exposed N/A -Texture (Angy-wound Skin Appearance) Scarring Assessed -Moisture (Angy-wound Skin Appearance) No Abnormality Assessed -Color (Angy-wound Skin Appearance) No Abnormality Assessed -Temperature (Angy-wound Skin No Abnormality No Abnormality Appearance) (Pt Warm) (Pt Warm) -Tenderness on Palpation (Angy-wound No Skin Appearance) -Ulcer Cleansing Soap and Water Soap and Water -Foul Odor after Cleansing No No -Anesthetic Used 5% Lidocaine 5% Lidocaine Gel Gel WC - Nurse 2 - General Ulcer CM Notes Start: 03/14/22 08:33 Freq: Status: Active Protocol: Activity Type Activity Date Activity User E-sign Co-sign Detail Recorded Client Recorded Date Recorded By Document 03/14/22 09:06 MW [id number] 03/14/22 09:09 MW Document 03/21/22 09:58 MW [id number] 03/21/22 10:03 MW 03/14/22 03/21/22 09:06 09:58 Wound Center Nurse 2 #1 sacral -Time 09:06 09:58 -Correct Patient Yes Yes -Correct Side, Site, Position Yes Yes -Correct Procedure Yes Yes -Procedure Performed Yes Yes -Type of Procedure Debridement Debridement -Clinical Debridement Subcutaneous Subcutaneous -Tissue Removed Subcutaneous Subcutaneous -Post Debridement (cm) - Length 1.0 1.0 -Post Debridement (cm) - Width 2.5 2.6 -Post Debridement (cm) - Depth 0.1 0.1 -Total Square (Post) (cm) 2.50 2.60 -Area of Debridement (cm) - Length 1.0 1.0 -Area of Debridement (cm) - Width 2.5 2.6 -Total Square (Area) (cm) 2.50 2.60 -Tunneling No No -Undermining/Tunneling No No -Circular Undermining No No -Wound/Ulcer Outcome Not Healed Not Healed -Ulcer Cleansing Wound Cleanser Rinsed/ Irrigated with Saline -Foul Odor after Cleansing No No -Bioengineered Tissue No No -Bleeding Controlled with Pressure Pressure -Treatment Response Procedure Procedure Tolerated Well Tolerated Well -Offloading No No -Debridement - Subq, 1st 20sq cm Yes Yes Pain Scale: 0-10 Numeric Is Patient Pain Free? Yes Yes WC - Nurse 3 - General Ulcer D/C NN Start: 03/14/22 08:33 Freq: Status: Active Protocol: Activity Type Activity Date Activity User E-sign Co-sign Detail Recorded Client Recorded Date Recorded By Document 03/14/22 09:20 [facility] [id number] 03/14/22 09:20 [facility] Document 03/21/22 10:16 [place] [id number] 03/21/22 10:17 [place] 03/14/22 03/21/22 09:20 10:16 Wound Care Nurse 3 #1 sacral -Ulcer Cleansing Rinsed/ Rinsed/ Irrigated with Irrigated with Saline Saline -Foul Odor after Cleansing No No -Primary Dressing Applied Mepilex Border, Mepilex Border, Promogran Promogran -Other Dressing DRSG PER DL INVESTMENT ASSOCIATE drsg per mt rn -Primary Dressing Covered/Secured with Secured with Tape -Other Covering abd -Mepilex Border 1 1 -Promogran 1 2 Treatment Response Procedure Procedure Tolerated Well Tolerated Well Pain Scale: 0-10 Numeric Is Patient Pain Free? Yes Yes WC - Visit Discharge Discharge Condition Stable Stable Ambulatory Status Wheelchair Transportation Private Auto Private Auto Accompanied by CAREGIVER caregiver Assessment/Plan Assessment/Plan (1) Sacral decubitus ulcer, stage III: CODE(S): L89.153 - Pressure ulcer of sacral region, stage 3 (2) Paraplegia: CODE(S): G82.20 - Paraplegia, unspecified PLAN: Plan Debridement done as documented above, procedure was well-tolerated. Stable. As above, had been better per her caregiver with Promogran however they have run out and went back to what they had left of Aquacel. Increased diarrhea with periwound irritation. Currently undergoing bowel prep for colonoscopy. Continue Promogran, change twice daily or more if needed depending on soilage. Continue Increased protein intake and Offloading. Vitamin C, D and zinc also recommended. Their questions were answered and they were advised to call with any further questions or concerns. Follow-up in a week or sooner if needed. This note was generated with [employer] dictation software. It may contain incorrect words, spelling, and punctuation that were not noted in checking the note before signing.
[2022-03-28 08:48] VITALS: BP 107/72; PULSE 86; RESP 20; TEMP 36.5; BMI 22.0
--- NOTE | 2022-03-28 09:57 | PCM.WC.PN ---
History of Present Illness Date of Service: 03/28/22 Chief Complaint: Nonhealing sacral wound History of Wound: Rhiannon is a 36-year-old young lady who presents to the wound center due to a 1 month history of nonhealing sacral wound. History of paraplegia following an accident at age 3. Ulcer was said to have started about a month ago and mother and caregiver believe it was as a result of a new wheelchair and gel cushion. They have been managing this at home with an [id number]-[id number]-ccojrra ointment which was applied 2-3 times a day with only minimal improvement/change. Close proximity to anal opening. Prior history of sacral wound for which she had wound flap/closure and this was done at [place]. Her mother states that she is otherwise stable, no chills, fever or feeling of unwell. Typically has a bowel movement every couple of days. Progress of Wound: Periwound irritation has improved. Some improvement and also as well. Less bowel movements since colonoscopy. Objective Data Objective Data Vital Signs: Vital Signs Temp Pulse Resp BP O2 Del Method 97.7 F L 86 20 H 107/72 Room Air 03/28/22 08:48 03/28/22 08:48 03/28/22 08:48 03/28/22 08:48 03/21/22 09:04 Oxygen Delivery Method Room Air Weight: 140 lb 10.354 oz Body Mass Index (BMI) 22.0 Charges/Coding Procedures Integumentary 111xxx-113xx: 59315 Cassandra subq tissue 20 sq cm/< Physical Exam Const alert, oriented x3 and no apparent distress General Appearance: cooperative, comfortable and well kempt HEENT normocephalic, head/scalp atraumatic and hearing grossly normal bilaterally Eyes PERRL General Eye: normal appearance of both eyes Neck full ROM General: normal visual inspection Resp normal respiratory effort and normal air movement Skin Wounds: wounds noted Neuro oriented x3 and CN's II-XII intact bilaterally Psych mental status grossly normal, thought process normal, cooperative, affect normal and speech normal Debridement Note Debridement Note Wound debrided: Sacral Type of Debridement: Excisional debridement Anesthesia Used: 4% Lidocaine Solution Depth: Down to and including healthy tissue and in the subcutaneous layer Percentage of wound debrided: 100 Instrument Used: 3mm curette Tissue Removed: Slough and devitalized tissue Severity: Fat Layer Exposed Amount of bleeding with debridement: Mild Bleeding Controlled with: Pressure Patient tolerated procedure: Patient tolerated procedure well Post-Debridement Measurements and Additional Note: Post-Debridement Measurements/Treatment - Nurse 1 - General Ulcer Assessment Start: 03/14/22 08:33 Freq: Status: Active Protocol: DELMER Activity Type Activity Date Activity User E-sign Co-sign Detail Recorded Client Recorded Date Recorded By Document 03/14/22 08:33 DL [id number] 03/14/22 08:40 DL Document 03/21/22 09:04 BMF [id number] 03/21/22 09:15 BMF Document 03/28/22 08:48 DL [id number] 03/28/22 08:56 DL 03/14/22 03/21/22 03/28/22 08:33 09:04 08:48 - Today's Visit Information Type of service Follow-up Visit Follow-up Visit Follow-up Visit (Physician/SEWER SYSTEM SUPERVISOR (Physician/SEWER SYSTEM SUPERVISOR (Physician/SEWER SYSTEM SUPERVISOR ) ) ) Arrival Mode Wheelchair Wheelchair Wheelchair Transfer Assistance None Manual Transfer Assist (Other) x2 x2 Accompanied by caregiver Patient Identification Verified (Name & Yes Yes Yes ) Patient Requires Transmission-Based No No No Precautions Height and Weight Body Mass Index (BMI) 22.0 22.0 22.0 BMI Classification Normal Normal Normal Vital Signs Temperature (97.8 F-99.1 F) 97.9 F 96.9 F L 97.7 F L Temperature Source Temporal Temporal Temporal Pulse Rate (60-100) 100 94 86 Pulse Location Monitor Monitor Monitor Respiratory Rate (12-18) 20 H 16 20 H Respiratory rate source Observation Observation Observation Oxygen Delivery Method Room Air Blood Pressure (90/60-120/80) 99/66 146/98 H 107/72 Blood Pressure Mean (mm Hg) 77 114 83 Source Monitor Monitor Monitor Position Sitting Blood Pressure Location Left Arm History Since Last Visit- (Skip if this is Patient's initial visit) Have you changed medications since your No No No last visit? Any new allergies or adverse reactions No No No Had a fall/change in ADL's that may No No No increase risk of falls Signs or symptoms of abuse and/or No No No neglect since last visit Have you been in the hospital since your No No No last visit? Has dressing in place as prescribed Yes Yes Yes Has compression in place as prescribed N/A N/A N/A Has offloadiing in place as prescribed Yes N/A Yes Experienced any changes in pain level or No No No management Other Footwear socks only Pain Scale: 0-10 Numeric Is Patient Pain Free? Yes Yes Yes WC - Nurse 1 - General Ulcer Measurement Start: 03/14/22 08:33 Freq: Status: Active Protocol: Activity Type Activity Date Activity User E-sign Co-sign Detail Recorded Client Recorded Date Recorded By Document 03/14/22 08:33 DL [id number] 03/14/22 08:40 DL Document 03/21/22 09:04 BMF [id number] 03/21/22 09:15 BMF Document 03/28/22 08:48 DL [id number] 03/28/22 08:56 DL 03/14/22 03/21/22 03/28/22 08:33 09:04 08:48 Wound Center Nurse 1 #1 sacral -Combined with other wound No -Current Size (cm) - Length 1.4 1 3.3 -Current Size (cm) - Width 2.1 1.2 2.5 -Current Size (cm) - Depth 0.2 0.1 0.2 -Total Square Cm 2.94 1.2 8.25 -Date of Last Picture (Recall this 03/21/22 field) -Photo Taken No Yes No -Epithelialization None Present -Tunneling No -Undermining/Tunneling No -Circular Undermining No -Exudate Amt Medium Medium Medium -Exudate Type Serosanguineous Sanguineous Serosanguineous -Wound Margin Distinct, Distinct, Distinct, Outline Outline Outline Attached Attached Attached -Granulation Amt Large (67-100%) Large (67-100%) Large (67-100%) -Granulation Quality Red Red Red -Slough/Fibrin No -Necrosis Amt None Present (0 None Present (0 None Present (0 %) %) %) -Structure Exposed N/A N/A -Texture (Angy-wound Skin Appearance) Scarring Assessed No Abnormality, Scarring -Moisture (Angy-wound Skin Appearance) No Abnormality Assessed No Abnormality -Color (Angy-wound Skin Appearance) No Abnormality Assessed No Abnormality -Temperature (Angy-wound Skin No Abnormality No Abnormality No Abnormality Appearance) (Pt Warm) (Pt Warm) (Pt Warm) -Tenderness on Palpation (Angy-wound No Skin Appearance) -Ulcer Cleansing Soap and Water Soap and Water Soap and Water -Foul Odor after Cleansing No No No -Anesthetic Used 5% Lidocaine 5% Lidocaine 5% Lidocaine Gel Gel Gel WC - Nurse 2 - General Ulcer CM Notes Start: 03/14/22 08:33 Freq: Status: Active Protocol: Activity Type Activity Date Activity User E-sign Co-sign Detail Recorded Client Recorded Date Recorded By Document 03/14/22 09:06 MW [id number] 03/14/22 09:09 MW Document 03/21/22 09:58 MW [id number] 03/21/22 10:03 MW Document 03/28/22 09:46 MW [id number] 03/28/22 09:50 MW 03/14/22 03/21/22 03/28/22 09:06 09:58 09:46 Wound Center Nurse 2 #1 sacral -Time 09:06 09:58 09:47 -Correct Patient Yes Yes Yes -Correct Side, Site, Position Yes Yes Yes -Correct Procedure Yes Yes Yes -Procedure Performed Yes Yes Yes -Type of Procedure Debridement Debridement Debridement -Clinical Debridement Subcutaneous Subcutaneous Subcutaneous -Tissue Removed Subcutaneous Subcutaneous Subcutaneous -Post Debridement (cm) - Length 1.0 1.0 1.0 -Post Debridement (cm) - Width 2.5 2.6 2.5 -Post Debridement (cm) - Depth 0.1 0.1 0.1 -Total Square (Post) (cm) 2.50 2.60 2.50 -Area of Debridement (cm) - Length 1.0 1.0 1.0 -Area of Debridement (cm) - Width 2.5 2.6 2.5 -Total Square (Area) (cm) 2.50 2.60 2.50 -Tunneling No No No -Undermining/Tunneling No No No -Circular Undermining No No No -Wound/Ulcer Outcome Not Healed Not Healed Not Healed -Ulcer Cleansing Wound Cleanser Rinsed/ Rinsed/ Irrigated with Irrigated with Saline Saline -Foul Odor after Cleansing No No No -Bioengineered Tissue No No No -Bleeding Controlled with Pressure Pressure Pressure -Treatment Response Procedure Procedure Procedure Tolerated Well Tolerated Well Tolerated Well -Offloading No No No -Debridement - Subq, 1st 20sq cm Yes Yes Yes Pain Scale: 0-10 Numeric Is Patient Pain Free? Yes Yes Yes - Nurse 3 - General Ulcer D/C NN Start: 03/14/22 08:33 Freq: Status: Active Protocol: Activity Type Activity Date Activity User E-sign Co-sign Detail Recorded Client Recorded Date Recorded By Document 03/14/22 09:20 BM [id number] 03/14/22 09:20 BMF Document 03/21/22 10:16 MT [id number] 03/21/22 10:17 MT Document 03/28/22 09:51 MW [id number] 03/28/22 09:51 MW Edit Result 03/28/22 09:51 MW (1) [id number] 03/28/22 09:55 MW (1) #1 sacral - Promogran 1 => 2 03/14/22 03/21/22 03/28/22 09:20 10:16 09:51 Wound Care Nurse 3 #1 sacral -Ulcer Cleansing Rinsed/ Rinsed/ Rinsed/ Irrigated with Irrigated with Irrigated with Saline Saline Saline -Foul Odor after Cleansing No No No -Negative Pressure Wound Therapy N/A -Primary Dressing Applied Mepilex Border, Mepilex Border, Mepilex Border, Promogran Promogran Promogran -Other Dressing DRSG PER DL MANAGER FIRE drsg per mt rn -Primary Dressing Covered/Secured with Secured with Tape -Other Covering abd -Mepilex Border 1 1 1 -Promogran 1 2 2 Treatment Response Procedure Procedure Procedure Tolerated Well Tolerated Well Tolerated Well Pain Scale: 0-10 Numeric Is Patient Pain Free? Yes Yes Yes Teaching: Wound Center Dressing Your Wound -Person Taught Patient,Primary Caregiver -Teaching Method Discussion -Response to teaching Verbalize understanding WC - Visit Discharge Discharge Condition Stable Stable Stable Ambulatory Status Wheelchair Wheelchair Transportation Private Auto Private Auto Private Auto Accompanied by CAREGIVER caregiver caregiver Medication Reconcilliation completed & No provided to patient/care provider Clinical Summary of Care Provided Yes Assessment/Plan Assessment/Plan (1) Sacral decubitus ulcer, stage III: CODE(S): L89.153 - Pressure ulcer of sacral region, stage 3 (2) Paraplegia: CODE(S): G82.20 - Paraplegia, unspecified PLAN: Plan Debridement done as documented above, procedure was well-tolerated. Some improvement noted. Continue Promogran, change twice daily or more if needed depending on soilage. Continue Increased protein intake and Offloading. Vitamin C, D and zinc also recommended. Their questions were answered and they were advised to call with any further questions or concerns. Follow-up in a week or sooner if needed. This note was generated with [employer] dictation software. It may contain incorrect words, spelling, and punctuation that were not noted in checking the note before signing.
== END 2022-04-10 23:59 | disposition home or self-care (01) ==
LOC: WC 09:45
PROVIDERS: PCP Internal Medicine; Visit Provider Internal Medicine
DX: L89.153 Pressure ulcer of sacral region, stage 3 (principal); G82.20 Paraplegia, unspecified
CPT/HCPCS: 11042

== ENCOUNTER 2022-04-11 08:55 | Outpatient (RCR) | payer MEDICAID, SELFPAY ==
[2022-04-11 00:35] VITALS: BP 107/72; PULSE 86; RESP 20; TEMP 36.5; BMI 22.0
[2022-04-11 08:59] VITALS: BP 127/87; PULSE 111; RESP 18; TEMP 35.9; BMI 22.0
--- NOTE | 2022-04-11 09:50 | PN.PCM_ITS ---
History of Present Illness Date of Service: 04/11/22 Chief Complaint: Nonhealing sacral wound History of Wound: Rhiannon is a 36-year-old young lady who presents to the wound center due to a 1 month history of nonhealing sacral wound. History of paraplegia following an accident at age 3. Ulcer was said to have started about a month ago and mother and caregiver believe it was as a result of a new wheelchair and gel cushion. They have been managing this at home with an [id number] ointment which was applied 2-3 times a day with only minimal improvement/change. Close proximity to anal opening. Prior history of sacral wound for which she had wound flap/closure and this was done at [facility]. Her mother states that she is otherwise stable, no chills, fever or feeling of unwell. Typically has a bowel movement every couple of days. Progress of Wound: Stable. No new concerns reported. No significant change. Looking into surgical closure. Objective Data Objective Data Vital Signs: Vital Signs Temp Pulse Resp BP 96.6 F L 111 H 18 127/87 H 04/11/22 08:59 04/11/22 08:59 04/11/22 08:59 04/11/22 08:59 Weight: 140 lb 10.354 oz Body Mass Index (BMI) 22.0 Charges/Coding Procedures Integumentary 111xxx-113xx: [id number] Cassandra subq tissue 20 sq cm/< Physical Exam Const alert, oriented x3 and no apparent distress General Appearance: cooperative, comfortable and well kempt HEENT normocephalic, head/scalp atraumatic and hearing grossly normal bilaterally Eyes PERRL General Eye: normal appearance of both eyes Neck full ROM General: normal visual inspection Resp normal respiratory effort and normal air movement Skin Wounds: wounds noted Neuro oriented x3 and CN's II-XII intact bilaterally Psych mental status grossly normal, thought process normal, cooperative, affect normal and speech normal Debridement Note Debridement Note Wound debrided: Sacral Type of Debridement: Excisional debridement Anesthesia Used: 4% Lidocaine Solution Depth: Down to and including healthy tissue and in the subcutaneous layer Percentage of wound debrided: 100 Instrument Used: 3mm curette Tissue Removed: Slough and devitalized tissue Severity: Fat Layer Exposed Amount of bleeding with debridement: Mild Bleeding Controlled with: Pressure Patient tolerated procedure: Patient tolerated procedure well Post-Debridement Measurements and Additional Note: Post-Debridement Measurements/Treatment JUAN - Nurse 1 - General Ulcer Assessment Start: 04/11/22 08:59 Freq: Status: Active Protocol: DELMER Activity Type Activity Date Activity User E-sign Co-sign Detail Recorded Client Recorded Date Recorded By Document 04/11/22 08:59 DL [id number] 04/11/22 09:05 DL 04/11/22 08:59 WC - Today's Visit Information Type of service Follow-up Visit (Physician/APPRENTICE PATTERN MAKER ) Arrival Mode Wheelchair Transfer Assistance Manual Transfer Assist (Other) x2 Patient Identification Verified (Name & Yes ) Patient Requires Transmission-Based No Precautions Height and Weight Body Mass Index (BMI) 22.0 BMI Classification Normal Vital Signs Temperature (97.8 F-99.1 F) 96.6 F L Temperature Source Temporal Pulse Rate (60-100) 111 H Respiratory Rate (12-18) 18 Blood Pressure (90/60-120/80) 127/87 H Blood Pressure Mean (mm Hg) 100 Source Monitor History Since Last Visit- (Skip if this is Patient's initial visit) Have you changed medications since your No last visit? Any new allergies or adverse reactions No Had a fall/change in ADL's that may No increase risk of falls Signs or symptoms of abuse and/or No neglect since last visit Have you been in the hospital since your No last visit? Has dressing in place as prescribed Yes Has compression in place as prescribed N/A Has offloadiing in place as prescribed Yes Experienced any changes in pain level or No management Pain Scale: 0-10 Numeric Is Patient Pain Free? Yes JUAN - Nurse 1 - General Ulcer Measurement Start: 04/11/22 08:59 Freq: Status: Active Protocol: Activity Type Activity Date Activity User E-sign Co-sign Detail Recorded Client Recorded Date Recorded By Document 04/11/22 08:59 DL [id number] 04/11/22 09:05 DL 04/11/22 08:59 Wound Center Nurse 1 #1 sacral -Current Size (cm) - Length 1.5 -Current Size (cm) - Width 2.5 -Current Size (cm) - Depth 0.1 -Total Square Cm 3.75 -Photo Taken Yes -Exudate Amt Medium -Exudate Type Serosanguineous -Wound Margin Distinct, Outline Attached -Granulation Amt Large (67-100%) -Granulation Quality Red -Necrosis Amt None Present (0 %) -Structure Exposed N/A -Texture (Angy-wound Skin Appearance) Scarring -Moisture (Angy-wound Skin Appearance) No Abnormality -Color (Angy-wound Skin Appearance) No Abnormality -Temperature (Angy-wound Skin No Abnormality Appearance) (Pt Warm) -Ulcer Cleansing Soap and Water -Anesthetic Used 5% Lidocaine Gel WC - Nurse 2 - General Ulcer CM Notes Start: 04/11/22 08:59 Freq: Status: Active Protocol: Activity Type Activity Date Activity User E-sign Co-sign Detail Recorded Client Recorded Date Recorded By Document 04/11/22 09:26 MW [id number] 04/11/22 09:40 MW 04/11/22 09:26 Wound Center Nurse 2 -Time 09:27 -Correct Patient Yes -Correct Side, Site, Position Yes -Correct Procedure Yes -Procedure Performed Yes -Type of Procedure Debridement -Clinical Debridement Subcutaneous -Tissue Removed Subcutaneous -Post Debridement (cm) - Length 1.0 -Post Debridement (cm) - Width 2.6 -Post Debridement (cm) - Depth 0.1 -Total Square (Post) (cm) 2.60 -Area of Debridement (cm) - Length 1.0 -Area of Debridement (cm) - Width 2.6 -Total Square (Area) (cm) 2.60 -Tunneling No -Undermining/Tunneling No -Circular Undermining No -Wound/Ulcer Outcome Not Healed -Ulcer Cleansing Rinsed/ Irrigated with Saline -Foul Odor after Cleansing No -Bioengineered Tissue No -Bleeding Controlled with Pressure -Treatment Response Procedure Tolerated Well -Offloading No -Debridement - Subq, 1st 20sq cm Yes Pain Scale: 0-10 Numeric Is Patient Pain Free? Yes - Nurse 3 - General Ulcer D/C NN Start: 04/11/22 08:59 Freq: Status: Active Protocol: Activity Type Activity Date Activity User E-sign Co-sign Detail Recorded Client Recorded Date Recorded By Document 04/11/22 09:45 BM [id number] 04/11/22 09:47 BMF 04/11/22 09:45 Wound Care Nurse 3 #1 sacral -Ulcer Cleansing Rinsed/ Irrigated with Saline -Foul Odor after Cleansing No -Primary Dressing Applied Mepilex Border, Promogran -Mepilex Border 1 -Promogran 1 Treatment Response Procedure Tolerated Well Pain Scale: 0-10 Numeric Is Patient Pain Free? Yes WC - Visit Discharge Discharge Condition Stable Ambulatory Status Wheelchair Transportation Private Auto Accompanied by caregiver Assessment/Plan Assessment/Plan (1) Sacral decubitus ulcer, stage III: CODE(S): L89.153 - Pressure ulcer of sacral region, stage 3 (2) Paraplegia: CODE(S): G82.20 - Paraplegia, unspecified PLAN: Plan Debridement done as documented above, procedure was well-tolerated. Surgical flap closure/diverting colostomy discussed with patient and caregiver. Refer to [facility] surgery. For now continue Promogran, change twice daily or more if needed depending on soilage. Continue Increased protein intake and Offloading. Vitamin C, D and zinc also recommended. Their questions were answered and they were advised to call with any further questions or concerns. Follow-up in 2 weeks or sooner if needed. This note was generated with [employer] dictation software. It may contain incorrect words, spelling, and punctuation that were not noted in checking the note before signing.
--- NOTE | 2022-04-24 12:44 | WC ---
Phone message left from mother, Willa Schrader stating that they got a referral from Dr. Hutchison for [facility] for a surgical closure of Rhiannon Jabobs wound.
== END 2022-05-11 23:59 | disposition home or self-care (01) ==
LOC: WC 08:55
PROVIDERS: PCP Internal Medicine; Visit Provider Internal Medicine
DX: L89.153 Pressure ulcer of sacral region, stage 3 (principal); G82.20 Paraplegia, unspecified
CPT/HCPCS: 11042